=== PATIENT | female | born 1965 | race Caucasian/White ===

== ENCOUNTER 2017-11-07 11:33 | Observation (INO) ==
[2017-11-07] MEDS ORDERED: Ketorolac Inj 30 MG/ML (IVP) Vial IV.PUSH ONE (13:10)
--- NOTE | 2017-11-07 13:19 | ED ---
HPI General Chief complaint: Back Pain/Injury Stated complaint: back pain/ evac Time Seen by Provider: 11/07/17 13:00 Source: patient and RN notes reviewed Mode of arrival: ambulatory Limitations: no limitations History of Present Illness HPI narrative: 51-year-old female presents to the emergency department for multiple complaints. The patient states that yesterday, she was walking into [employer] and her pants are too big. She states this started to fall down so she went to grab him when she fell, injuring her lower back and right lower leg. Patient also complains of chronic shortness of breath. She states that she was at [facility] and they kept all of her medications including her inhaler. She reports that she has COPD. Patient denies being on anticoagulants. No head injury. Patient also states that she has trouble hearing from her left ear which appears to be chronic. She is also asking for food and to see case management as she needs to get back to [place], but she no longer has any money. The pain in her lower back and right lower leg is 10/10. She does have an abrasion to the right lower leg. She states her tetanus immunization is up-to-date. Moderate severity. Patient also reports chest pain , she states she had a recent cardic cath, states they told her "I might need a stent". She states this was in [facility] at [facility]. Patient reports having chest pressure that started this morning, 10/10, without radiation. Onset (ago): day(s) Location: back and lower extremity Radiation: non-radiation Severity: moderate Severity scale (1-10): 10 Quality: aching Pain Consistency: constant Relieving factors: none Exacerbating factors: movement Associated symptoms: denies other symptoms Treatments prior to arrival: none Related Data Home Medications Medication Instructions Recorded Confirmed Unable to Obtain Home Meds 11/07/17 11/07/17 Allergies Allergy/AdvReac Type Severity Reaction Status Date / Time No Known Allergies Allergy Unverified 11/07/17 13:10 Review of Systems ROS Unobtainable All other systems reviewed negative except as stated in HPI [facility] Social History Social History Substance History: No History of Abuse Second Hand Smoke Exposure: Yes Smoking Status: Current every day smoker Tobacco Type: Cigarettes How Often Do You Have a Drink Containing Alcohol: 2 to 3 times a week Recent Travel in [facility] within the Last 8 Weeks: No Recent Out of Country Travel within the Last 8 Weeks: No Exam Narrative Exam Narrative: GENERAL: Well-nourished, well-developed female patient, afebrile SKIN: Focused skin assessment warm/dry. Patient has an abrasion to the right lower leg HEAD: Normocephalic. Atraumatic ENT: Mucosa pink and moist. No erythema or exudates. No uvular edema. No uvular , palatal, or tonsillar deviation. Airway patent. Nasal turbinates appear normal without nasal blood, purulent drainage or septal hematoma. Bilateral tympanic membranes clear without erythema or perforation. EYES: No scleral icterus. No injection or drainage. NECK: Supple, trachea midline. No JVD or lymphadenopathy. CARDIOVASCULAR: Regular rate and rhythm without murmurs, gallops, or rubs. RESPIRATORY: Breath sounds equal bilaterally. No accessory muscle use. Lung sounds are clear to auscultation GASTROINTESTINAL: Abdomen soft, non-tender, nondistended. MUSCULOSKELETAL: No cyanosis, or edema. BACK: Nontender without obvious deformity. No CVA tenderness. Course Initial Documented Vital Signs Temperature 98.3 F 11/07/17 11:35 Pulse Rate 97 H 11/07/17 11:35 Respiratory Rate 20 11/07/17 11:35 Blood Pressure 143/73 H 11/07/17 11:35 Pulse Oximetry 93 L 11/07/17 11:35 Last Documented Vital Signs Temperature 98.3 F 11/07/17 11:35 Pulse Rate 97 H 11/07/17 11:35 Respiratory Rate 20 11/07/17 11:35 Blood Pressure 143/73 H 11/07/17 11:35 Pulse Oximetry 93 L 11/07/17 11:35 Medical Decision Making MARSHAL Attestation MARSHAL supervised visit: Yes Attestation: I, Dr. Jernigan, have reviewed the advance practice practitioner's documentation and am in agreement, met with the patient face to face, made the diagnosis, and the medical decision making was done by me. *My assessment and Findings: Patient seen and examined by me in addition to Aniya Sanon, this a 51-year-old female presents to the emergency department chest pain radiating her back, she states she bent over last night to product picker her drawers when I fell off of her at a local [employer] and she fell forward leading to knee pain back pain etc. She was told at [facility] in [place] that her cath showed she had multiple blocked blood vessels and had recommended surgery for her. She is unclear as to the details. She does have a history of psychiatric illness and since moving from [place] has not been on her medications. Initial workup including chest x-ray multiple plain film x-rays troponin EKG is negative. We are attempting to get outside records for this patient however she does express wishes to see cardiology and continues to have chest pain. For that reason I think is reasonable to admit her to her chest pain center for the time being, once she is cleared she could consider outpatient psychiatric follow-up. She certainly does not meet [place] act criteria at this time. After chest pain rule out she would be stable for discharge. [facility] Narrative Medical decision making narrative: 51-year-old female presents to the emergency department for evaluation of back pain and leg pain after she tripped and fell yesterday [employer]s. However, she also complains of worsening shortness of breath since she does not have [facility]. She complains of COPD. She also complains of chest pain. She is also asking for food and to see case management. She does appear well on exam. EKG, CBC, BMP, magnesium, CK, troponin, PTT, PT/INR, chest x-ray, x-ray lumbar spine, x-ray of the right tibia/fibular ordered and pending. Patient is given DuoNeb 1 and aspirin 162 mg p.o. Patient was initially seen in triage. She is moved to medical bed for further evaluation and disposition per Medical Records Medical records reviewed: Yes I reviewed the patient's medical records. Lab Data Result diagrams: 11/07/17 13:30 11/07/17 13:30 Lab Results 11/07/17 11/07/17 11/07/17 Range/Units 13:30 13:30 13:30 WBC 13.3 H (4.0-11.0) th/mm3 RBC 4.85 (4.00-5.30) mil/mm3 Hgb 15.0 (11.6-15.3) gm/dL Hct 44.9 (35.0-46.0) % MCV 92.6 (80.0-100.0) fL MCH 30.9 (27.0-34.0) pg MCHC 33.4 (32.0-36.0) % RDW 15.5 (11.6-17.2) % Plt Count 327 (150-450) th/mm3 MPV 9.5 (7.0-11.0) fL Neut % (Auto) 72.1 H (16.0-70.0) % Lymph % (Auto) 20.4 (9.0-44.0) % [place] % (Auto) 6.0 (0.0-8.0) % Eos % (Auto) 0.6 (0.0-4.0) % Baso % (Auto) 0.9 (0.0-2.0) % Neut # (Auto) 9.6 H (1.8-7.7) th/mm3 Lymph # (Auto) 2.7 (1.0-4.8) th/mm3 [place] # (Auto) 0.8 (0.0-0.9) th/mm3 Eos # (Auto) 0.1 (0.0-0.4) th/mm3 Baso # (Auto) 0.1 (0.0-0.2) th/mm3 WBC Differential . Differential Comment Auto diff final PT 9.5 L (9.8-11.6) sec INR 0.9 Ratio APTT 25.4 (24.3-30.1) sec Total Creatine Kinase 54 (26-192) U/L Troponin I Less than 0.02 L (0.02-0.05) ng/mL Imaging Data Radiologist's impression: ITS Impressions Chest X-Ray 11/07/17 13:10 CONCLUSION: No acute intrathoracic disease. Lumbar Spine X-Ray 11/07/17 13:10 CONCLUSION: Mild degenerative changes throughout the lumbar spine. Tibia/Fibula X-Ray 11/07/17 13:10 CONCLUSION: Nonspecific edema in the soft tissues. The bony structures are grossly intact. Discharge Plan Discharge Disposition Patient Disposition: 30 Still Patient Physicians Team ED Provider: Marcus Jernigan ED Midlevel Provider: Aniya Steen Primary Care Provider: Primary Care JefiLilli Rxs /Orders / Referrals /Forms Prescriptions: No Action Unable to Obtain Home Meds RF: 0 Status ED Status: With Doctor
[2017-11-07 14:13] LABS: Baso # (Auto) 0.1 th/mm3 (0.0-0.2); Baso % (Auto) 0.9 % (0.0-2.0); Eos # (Auto) 0.1 th/mm3 (0.0-0.4); Eos % (Auto) 0.6 % (0.0-4.0); Hematocrit 44.9 % (35.0-46.0); Lymph # (Auto) 2.7 th/mm3 (1.0-4.8); Lymph % (Auto) 20.4 % (9.0-44.0); Mean Corpuscular HGB Conc 33.4 % (32.0-36.0); Mean Corpuscular Hemoglobin 30.9 pg (27.0-34.0); Mean Corpuscular Volume 92.6 fL (80.0-100.0); Mean Platelet Volume 9.5 fL (7.0-11.0); Mono # (Auto) 0.8 th/mm3 (0.0-0.9); Neut # (Auto) 9.6 th/mm3 (1.8-7.7); Neut % (Auto) 72.1 % (16.0-70.0); Platelet Count 327 th/mm3 (150-450); Red Blood Count 4.85 mil/mm3 (4.00-5.30); Red Cell Distribution Width 15.5 % (11.6-17.2); White Blood Count 13.3 th/mm3 (4.0-11.0)
--- NOTE | 2017-11-07 14:19 | XR ---
EXAM DATE: 11/07/2017 2:14 PM EDT AGE/SEX: 51 years / Female INDICATIONS: Chest pain. CLINICAL DATA: This is the patient's initial encounter. Patient reports that signs and symptoms have been present for 1 day and indicates a pain score of 5/10. MEDICAL/SURGICAL HISTORY: . Heart cath recently, patient cannot remember exactly, but within tw o months. Smoker, Asthma, COPD, Shortness of breath. Schizophrenia, not on medication for some time. None. COMPARISON: No prior exams available for comparison. FINDINGS: A single AP view of the chest demonstrates the lungs to be symmetrically aerated without evidence of mass, infiltrate or effusion. The cardiomediastinal contours are unremarkable. Osseous structures a re intact. CONCLUSION: No acute intrathoracic disease. Electronically signed by: Gary Mcgill MD 11/07/2017 2:18 PM EDT
[2017-11-07 14:21] LABS: Activated Partial Thrombo Time 25.4 sec (24.3-30.1); INR 0.9 Ratio; Prothrombin Time 9.5 sec (9.8-11.6)
--- NOTE | 2017-11-07 14:26 | XR ---
EXAM DATE: 11/07/2017 2:22 PM EDT AGE/SEX: 51 years / Female INDICATIONS: Pain. CLINICAL DATA: This is the patient's initial encounter. Patient reports that signs and symptoms have been present for 1 day and indicates a pain score of 5/10. MEDICAL/SURGICAL HISTORY: . Heart cath recently, patient cannot remember exactly, but within tw o months. Smoker, Asthma, COPD, Shortness of breath. Schizophrenia, not on medication for some time. Fell at [facility]. . COMPARISON: No prior exams available for comparison. FINDINGS: The vertebral bodies are in normal alignment without evidence of compression deformity. There are mil d degenerative changes throughout the lumbar spine. There is good alignment of the SI joints and pubi c symphysis. Bone density is normal for age. Soft tissues are grossly intact. There are atherosclero tic changes in the aorta. CONCLUSION: Mild degenerative changes throughout the lumbar spine. Electronically signed by: Gary Mcgill MD 11/07/2017 2:25 PM EDT
--- NOTE | 2017-11-07 14:27 | XR ---
EXAM DATE: 11/07/2017 2:19 PM EDT AGE/SEX: 51 years / Female INDICATIONS: Leg pain. CLINICAL DATA: This is the patient's initial encounter. Patient reports that signs and symptoms have been present for 1 day and indicates a pain score of 5/10. MEDICAL/SURGICAL HISTORY: . Heart cath recently, patient cannot remember exactly, but within tw o months. Smoker, Asthma, COPD, Shortness of breath. Schizophrenia, not on medication for some time. Fell at [place]. None. COMPARISON: No prior exams available for comparison. FINDINGS: Bony structures are intact and in normal alignment. Osseous density is normal. . There is some nonspe cific edema in the soft tissues. No radiopaque foreign bodies seen. CONCLUSION: Nonspecific edema in the soft tissues. The bony structures are grossly intact. Electronically signed by: Gary Mcgill MD 11/07/2017 2:26 PM EDT
[2017-11-07 14:45] LABS: Creatine Kinase 54 U/L (26-192)
[2017-11-07 16:09] LABS: Calcium 8.5 mg/dL (8.5-10.1); Glomerular Filtration Rate 88 mL/min (>89); Glucose,Random 97 mg/dL (74-106); Magnesium 1.9 mg/dL (1.5-2.5)
[2017-11-07 16:10] LABS: Anion Gap 9 meq/L (5-15); Blood Urea Nitrogen 7 mg/dL (7-18); Carbon Dioxide 27.3 meq/L (21.0-32.0); Chloride 100 meq/L (98-107); Sodium 136 meq/L (136-145)
[2017-11-07] MEDS ORDERED: Acetaminophen 325 MG Tablet PO PRN ×2 (17:38)
[2017-11-07] MEDS ORDERED: Bisacodyl 10 MG Supp RECTAL PRN (17:38)
[2017-11-07] MEDS ORDERED: Naloxone Inj 0.4 MG/ML Vial IV.PUSH PRN (17:38)
--- NOTE | 2017-11-07 17:55 | ECG ---
Date Performed: 11/07/2017 Time Performed: 14:27:23 PTAGE: 51 years EKG: Sinus rhythm NORMAL ECG NO PREVIOUS TRACING DOCTOR: Mumtaz Sanders Interpretating Date/Time 11/07/2017 17:53:44
--- NOTE | 2017-11-07 18:03 | P.HPIM ---
History of Present Illness Primary Care Physician: No Primary Care Physician Chief Complaint: Chest pain History of Present Illness: 51-year-old white female with a history of schizophrenia, COPD, questionable coronary artery disease presents to the emergency room with complaints of substernal chest pains in which she rates as a 10 out of 10 in pain intensity that started 2:00 this morning with no radiation. She states that she was recently hospitalized and [facility] in [facility] on October 30 and was released 5 days later. She states that she usually gets her disability check of the first of the month and use the money to come to [place] to enjoy the sun he beach and stayed at a temporary motel. She states that she was recently placed in [facility] after falling asleep in [facility]. She has felt cloudy since she has stopped all her home medication think including medication she takes for her schizophrenia. She does not remember the name of the medications she was on. She states that she was discharged on aspirin at [facility] and had underwent cardiac catheterization. She does not recall what the physicians told her or if she had a stent placed. She states that she was taking medication for schizophrenia, her chronic low back pain, anxiety, and an inhaler, and recent antibiotics for either sinusitis or a cough. She states that she needs to see somebody to help her get back to [place]. She states that she is not getting along with her sister and she will not let her come back to live with her. Currently, she is homeless and is requesting help. Review of Systems Constitutional: Reports fatigue, Reports lack of energy, Denies body ache(s), Denies chills, Denies headache(s) Eyes: Denies blurry vision, Denies double vision Ears, Nose, Mouth, and Throat: Reports abnormal hearing, Reports nasal congestion, Denies nasal discharge, Denies nasal obstruction Cardiovascular: Reports chest pain, Reports leg swelling, Denies fast heart rate , Denies shortness of breath, Denies shortness of breath with activity Respiratory: Denies change in phlegm color, Denies chest congestion, Denies cough Gastrointestinal: Denies abdominal pain, Denies bright, red blood in stools, Denies change in bowel habits Musculoskeletal: Reports back pain, Denies abnormal walking, Denies muscle cramps Skin/Breast: Reports change in skin color, Reports changing lesions, Reports wounds, Denies yellowing of the skin Comments: Right lower leg from falling [employer]. Neurologic: Reports abnormal hearing, Denies abnormal speech, Denies confusion, Denies dizziness Psychiatric: Reports anxiety, Reports confusion, Reports difficulty concentrating, Reports irritability, Reports mood swings, Denies abnormal sleep pattern, Denies depression, Denies panic attacks Endocrine: Denies cold intolerance, Denies excessive sweating Hematologic/Lymphatic: Denies easy bleeding Allergic/Immunologic: Denies GI upset with certain foods PMFSH - History History Provided By: Patient - Medical / Surgical Hx Neg / Unobtainable Surgical History: No Previous Surgery - Medical History Medical History: Medical History (Last Updated 11/07/17 @ 17:56 by Yun Spivey MD) Anxiety Back pain COPD (chronic obstructive pulmonary disease) GERD (gastroesophageal reflux disease) Schizophrenia - Family History Family History: Family History (Last Updated 11/07/17 @ 17:57 by Yun Spivey MD) Mother COPD (chronic obstructive pulmonary disease) - Tobacco History Second Hand Smoke Exposure: Yes Tobacco Use In Past 30 Days: Yes Smoking Status: Current every day smoker Tobacco Type: Cigarettes - Alcohol History How Often Do You Have a Drink Containing Alcohol: 2 to 3 times a week - Substance Use History Substance History: No History of Abuse - Travel History Recent Travel in the [place] Within the Last 8 Weeks: No Recent Travel Out of the Country Within the Last 8 Weeks: No - Immunization History Tetanus Immunization: <5 Years Hx Influenza Vaccine This Season: No Medications and Allergies Allergies Allergy/AdvReac Type Severity Reaction Status Date / Time No Known Allergies Allergy Unverified 11/07/17 13:10 Exam Vital signs: Vital Signs 11/07/17 11:35 11/07/17 17:44 Temperature 98.3 F Pulse Rate 97 H 87 Respiratory Rate 20 18 Blood Pressure 143/73 H 114/61 Pulse Oximetry 93 L 98 Intake & Output 11/06/17 11/07/17 11/07/17 18:59 06:59 18:59 Weight 117.934 kg Narrative: GENERAL: Obese well-nourished well-developed disheveled malodorous female in no acute distress SKIN: Warm and dry. Healed abrasions on the right anterior tibial area HEAD: Atraumatic. Normocephalic. EYES: Pupils equal and round. No scleral icterus. No injection or drainage. ENT: No nasal bleeding or discharge. Mucous membranes pink and moist. NECK: Trachea midline. No JVD. Chest wall: Reproducible on palpation of the chest wall CARDIOVASCULAR: Regular rate and rhythm. RESPIRATORY: No accessory muscle use. Clear to auscultation. Breath sounds equal bilaterally. GASTROINTESTINAL: Abdomen soft, non-tender, nondistended. Hepatic and splenic margins not palpable. Normoactive bowel sounds MUSCULOSKELETAL: Extremities without clubbing, cyanosis, 1+ edema. NEUROLOGICAL: Awake and alert to person place time and situation. No obvious cranial nerve deficits. Motor grossly within normal limits. Five out of 5 muscle strength in the arms and legs. Normal speech. PSYCHIATRIC: Appropriate mood and affect; insight and judgment normal. Results - Labs CBC & Chem 7: 11/07/17 13:30 11/07/17 13:30 Labs: Short CBC 11/07/17 Range/Units 13:30 WBC 13.3 H (4.0-11.0) th/mm3 Hgb 15.0 (11.6-15.3) gm/dL Hct 44.9 (35.0-46.0) % Plt Count 327 (150-450) th/mm3 BMP 11/07/17 13:30 Sodium 136 Potassium 5.0 Chloride 100 Carbon Dioxide 27.3 BUN 7 Creatinine 0.70 Calcium 8.5 Cardiac Enzymes 11/07/17 Range/Units 13:30 Total Creatine Kinase 54 (26-192) U/L Troponin I Less than 0.02 L (0.02-0.05) ng/mL - Imaging Impressions Chest X-Ray 11/07/17 13:10 CONCLUSION: No acute intrathoracic disease. Lumbar Spine X-Ray 11/07/17 13:10 CONCLUSION: Mild degenerative changes throughout the lumbar spine. Tibia/Fibula X-Ray 11/07/17 13:10 CONCLUSION: Nonspecific edema in the soft tissues. The bony structures are grossly intact. Caprini VTE Risk Assessment Caprini VTE Risk Assessment: Moderate/High Risk (score >= 2) Caprini Risk Assessment Model: Point Value = 1 Point Value = 2 Point Value = 3 Point Value = 5 Age 41-60 Minor surgery BMI > 25 kg/m2 Swollen legs Varicose veins or History of unexplained or recurrent spontaneous Oral contraceptives or hormone replacement Sepsis (< 1 month) Serious lung disease, including pneumonia (< 1 month) Abnormal pulmonary function Acute myocardial infarction Congestive heart failure (< 1 month) History of inflammatory bowel disease Medical patient at bed rest Age 61-74 Arthroscopic surgery Major open surgery (> 45 min) Laparoscopic surgery (> 45 min) Malignancy Confined to bed (> 72 hours) Immobilizing plaster cast Central venous access Age >= 75 History of VTE Family history of VTE Factor V Leiden Prothrombin [id number] Lupus anticoagulant Anticardiolipin antibodies Elevated serum homocysteine Heparin-induced thrombocytopenia Other congenital or acquired thrombophilia Stroke (< 1 month) Elective arthroplasty Hip, pelvis, or leg fracture Acute spinal cord injury (< 1 month) Prophylaxis Regimen: Total Risk Factor Score Risk Level Prophylaxis Regimen 0-1 Low Early ambulation 2 Moderate Order ONE of the following: *Sequential Compression Device (SCD) *Heparin 5000 units SQ BID 3-4 Higher Order ONE of the following medications: *Heparin 5000 units SQ TID *Enoxaparin/Lovenox 40 mg SQ daily (WT < 150 kg, CrCl > 30 mL/min) *Enoxaparin/Lovenox 30 mg SQ daily (WT < 150 kg, CrCl > 10-29 mL/min) *Enoxaparin/Lovenox 30 mg SQ BID (WT < 150 kg, CrCl > 30 mL/min) AND/OR *Sequential Compression Device (SCD) 5 or more Highest Order ONE of the following medications: *Heparin 5000 units SQ TID (Preferred with Epidurals) *Enoxaparin/Lovenox 40 mg SQ daily (WT < 150 kg, CrCl > 30 mL/min) *Enoxaparin/Lovenox 30 mg SQ daily (WT < 150 kg, CrCl > 10-29 mL/min) *Enoxaparin/Lovenox 30 mg SQ BID (WT < 150 kg, CrCl > 30 mL/min) AND *Sequential Compression Device (SCD) Assessment and Plan - Plan 1. Chest pain, patient with atypical history however stated cardiac catheterization done in [facility] and stated that she "may need stents placed in the future". Continue with aspirin, serial cardiac enzymes will be done with EKG. will obtain further records for review. 2. History of schizophrenia with noncompliance and nonadherence to medications. At this time will obtain psychiatric consultation for recommendations for medications. Reviewing external data shows patient had a recent Lexapro filled. 3. Poor social history, case management consultation to assist with disposition.
[2017-11-07] MEDS ORDERED: Enoxaparin Inj 40 MG/0.4 ML Syringe SQ SCH (20:00)
[2017-11-08 03:43] LABS: Troponin I 0.02 ng/mL (0.02-0.05)
[2017-11-08 07:21] LABS: Creatine Kinase 37 U/L (26-192)
--- NOTE | 2017-11-08 10:28 | P.PNIM ---
Subjective Interval history: Patient reports she is feeling better in terms of chest pain. She is tender to palpation over her chest. She has been coughing prior to hospitalization. She has been seen by psychiatry who [facility]ailon acted her. Records from [facility] reviewed. Patient presented about a month ago for chest pain, underwent heart catheterization which revealed nonobstructive disease. Physical Exam Vital signs: Vital Signs 11/07/17 11:35 11/07/17 17:44 11/07/17 19:43 Temperature 98.3 F Pulse Rate 97 H 87 91 H Respiratory Rate 20 18 22 Blood Pressure 143/73 H 114/61 136/61 Pulse Oximetry 93 L 98 11/07/17 20:00 11/08/17 00:00 11/08/17 02:11 Temperature 98.5 F 97.8 F Pulse Rate 85 93 H Respiratory Rate 20 18 18 Blood Pressure 150/68 H 141/61 H Pulse Oximetry 92 L 93 L 11/08/17 04:00 11/08/17 04:49 11/08/17 05:14 Temperature 98.4 F Pulse Rate 88 Respiratory Rate 18 Blood Pressure 135/60 Pulse Oximetry 90 L 95 95 11/08/17 08:00 Temperature 98.3 F Pulse Rate 82 Respiratory Rate Blood Pressure 135/62 Pulse Oximetry 91 L Intake & Output 11/07/17 11/08/17 11/08/17 18:59 06:59 18:59 Weight 117.934 kg 117.934 kg Other: Weight On Admission 117.934 kg Narrative: GENERAL: morbidly obese female in no apparent distress. CARDIOVASCULAR: Normal rate and regular rhythm without murmurs, gallops, or rubs. RESPIRATORY: Good respiratory efforts. Breath sounds equal and clear to auscultation bilaterally. GASTROINTESTINAL: Abdomen soft, non-tender, non-distended. Normal active bowel sounds MUSCULOSKELETAL: Tenderness to palpation over the sternal joint areas. Extremities without cyanosis, or edema. NEURO: Alert & Oriented x4 to person, place, time, situation. Moves all ext x4 PSYCH: Anxious Results - Labs CBC & Chem 7: 11/07/17 13:30 11/07/17 13:30 Laboratory Results - last 24 hr 11/07/17 11/07/17 11/07/17 13:30 13:30 13:30 WBC 13.3 H RBC 4.85 Hgb 15.0 Hct 44.9 MCV 92.6 MCH 30.9 MCHC 33.4 RDW 15.5 Plt Count 327 MPV 9.5 Neut % (Auto) 72.1 H Lymph % (Auto) 20.4 Bureau % (Auto) 6.0 Eos % (Auto) 0.6 Baso % (Auto) 0.9 Neut # (Auto) 9.6 H Lymph # (Auto) 2.7 Bureau # (Auto) 0.8 Eos # (Auto) 0.1 Baso # (Auto) 0.1 WBC Differential . Differential Comment Auto diff final PT 9.5 L INR 0.9 APTT 25.4 Sodium 136 Potassium 5.0 Chloride 100 Carbon Dioxide 27.3 Anion Gap 9 BUN 7 Creatinine 0.70 Estimated GFR 88 L Random Glucose 97 Calcium 8.5 Magnesium 1.9 Total Creatine Kinase 54 Troponin I Less than 0.02 L 11/08/17 11/08/17 02:30 05:49 WBC RBC Hgb Hct MCV MCH MCHC RDW Plt Count MPV Neut % (Auto) Lymph % (Auto) Bureau % (Auto) Eos % (Auto) Baso % (Auto) Neut # (Auto) Lymph # (Auto) Bureau # (Auto) Eos # (Auto) Baso # (Auto) WBC Differential Differential Comment PT INR APTT Sodium Potassium Chloride Carbon Dioxide Anion Gap BUN Creatinine Estimated GFR Random Glucose Calcium Magnesium Total Creatine Kinase 33 37 Troponin I 0.02 Less than 0.02 L - Imaging Impressions Chest X-Ray 11/07/17 13:10 CONCLUSION: No acute intrathoracic disease. Lumbar Spine X-Ray 11/07/17 13:10 CONCLUSION: Mild degenerative changes throughout the lumbar spine. Tibia/Fibula X-Ray 11/07/17 13:10 CONCLUSION: Nonspecific edema in the soft tissues. The bony structures are grossly intact. Assessment and Plan - Assessment (1) Atypical chest pain Code(s): R07.89 - Other chest pain Status: Acute Plan: Records from [facility] reviewed. Patient presented about a month ago for chest pain, underwent heart catheterization which revealed nonobstructive disease. Patient is to continue with daily baby aspirin. Likely costochondritis as she has been coughing from COPD. (2) Schizophrenia Code(s): F20.9 - Schizophrenia, unspecified Status: Acute Plan: Patient has been seen by psychiatry and Bailon acted. She is discharged to psychiatry for further stabilization. (3) COPD (chronic obstructive pulmonary disease) Code(s): J44.9 - Chronic obstructive pulmonary disease, unspecified Status: Chronic Plan: Continue inhalers. Advair and PRN albuterol (4) Tobacco abuse Code(s): Z72.0 - Tobacco use Status: Chronic Plan: Patient was counseled. - Plan Patient is stable for discharge to psychiatry Diet: Heart healthy Activity: Regular as tolerated Meds: Per med rec Follow-up: With PCP
== END 2017-11-08 12:56 ==
LOC: NEPFCDU 11:33 → NEDA 11:33 → NEPD 11:33 → NEPFCDU 20:48
PROVIDERS: ADMIT Family Medicine; ATTEND Family Medicine

== ENCOUNTER 2017-11-08 11:50 | Inpatient (IN) ==
[2017-11-08] MEDS ORDERED: Bisacodyl 10 MG Supp RECTAL PRN (13:12)
[2017-11-08] MEDS ORDERED: Aluminum/Magnesium/Simethacone Susp 30 ML UDC PO PRN (13:12)
[2017-11-08] MEDS ORDERED: LORazepam 1 MG Tablet PO PRN (13:12)
[2017-11-08] MEDS ORDERED: Haloperidol Inj 5 MG/ML Ampul IV.PUSH PRN (13:12)
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
[2017-11-08] MEDS: Senna/Docusate Sodium 8.6/50 MG Tablet PO SCH (21:10)
[2017-11-09] MEDS ORDERED: Ketorolac 10 MG Tablet PO ONE (07:00)
[2017-11-09] MEDS: Senna/Docusate Sodium 8.6/50 MG Tablet PO SCH ×2 (09:22→21:33)
[2017-11-09] MEDS ORDERED: RESP: Albuterol Concentrated 2.5 MG/0.5 ML Neb NEB PRN (10:03)
--- NOTE | 2017-11-09 10:11 | P.CON ---
History of Present Illness Service: Hospitalist service Consult date: 11/09/17 Requesting Physician: Rick Mcdermott Reason for Consult: Assist with medical management of COPD and low back pain Primary Care Provider: UNKNOWN History of Present Illness: This is a 51-year-old female with past medical history significant for schizophrenia, COPD and coronary artery disease who recently underwent cardiac workup including a cardiac catheterization which revealed nonobstructive disease at [facility] in [facility] 10/30 and was admitted initially to [place] with complaints of substernal chest pain who ruled out of acute coronary syndrome. Additionally, patient had complaints of right leg pain and low back pain that occurred as a result of a recent fall. Imaging failed to show any acute fracture. Patient was also seen in consultation by psychiatry and was [facility]ailon acted. Patient has since been admitted to inpatient psychiatry and hospitalist services have been consulted to assist with medical management. Patient seen and examined. She has multiple complaints including chest pain, upper back pain, abdominal pain and right leg pain. She denies a history of GERD but does admit that she began developing substernal chest pain after taking her morning medications. However, GERD is listed in her past medical history per review of the medical record. She denies any fever or chills. She complains of chronic shortness of breath and states that she is supposed to be on oxygen. She denies any nausea or vomiting. She denies any dysuria. She reports a normal BM this morning. She reports pain and swelling right lower leg. She endorses mid thoracic spine pain extending all the way across the upper back. Patient admits to tobacco use states she smokes when she cannot receive pain medications and that this was advised by her physician. She endorses she will continue to smoke if she does not get pain medication. She is currently homeless. Review of Systems All other systems reviewed negative except as stated in HPI PMFSH - History History Provided By: Patient, Medical Record - Medical History Medical History: Medical History (Last Updated 11/07/17 @ 17:56 by Yun Spivey MD) Anxiety Back pain COPD (chronic obstructive pulmonary disease) GERD (gastroesophageal reflux disease) Schizophrenia - Surgical History Surgical History: Surgical History (Last Updated 11/09/17 @ 09:30 by Isabel Ahmadi) No history of previous surgery - Family History Family History: Family History (Last Updated 07/05/18 @ 17:57 by Yun Spivey MD) Mother COPD (chronic obstructive pulmonary disease) - Tobacco History Second Hand Smoke Exposure: No Tobacco Use In Past 30 Days: Yes Smoking Status: Current every day smoker Tobacco Type: Cigarettes - Alcohol History How Often Do You Have a Drink Containing Alcohol: 4 or more times a week - Substance Use History Substance History: No History of Abuse Medications and Allergies Active Medications: Active Medications Al Hydrox/Mg Hydrox/Simethicone (Mag-Al Plus Susp Liq) 30 ml PO Q6H PRN PRN Reason: DYSPEPSIA Al Hydroxide/Mg Hydroxide (Milk Of Magnesia Liq) 30 ml PO Q12H PRN PRN Reason: Mild Constipation Bisacodyl (Dulcolax Supp) 10 mg RECTAL DAILY PRN PRN Reason: SEVERE CONSITIPATION Flumazenil (Romazecon Inj) 0.2 mg IV.PUSH Q1M PRN PRN Reason: OVERSEDATION Haloperidol Lactate (Haldol Inj) 1 mg IV.PUSH Q15M PRN PRN Reason: for severe agitation Lactulose (Lactulose Liq) 30 ml PO DAILY PRN PRN Reason: SEVERE CONSITIPATION Lorazepam (Ativan) 1 mg PO Q4H PRN PRN Reason: for CIWA 8-10 Lorazepam (Ativan) 2 mg PO Q2H PRN PRN Reason: for CIWA 11-14 Lorazepam (Ativan Inj) 2 mg IV.PUSH Q2H PRN PRN Reason: for CIWA 11-14 Lorazepam (Ativan Inj) 2 mg IV.PUSH Q1H PRN PRN Reason: for CIWA 15-20 Lorazepam (Ativan Inj) 2 mg IV.PUSH Q15M PRN PRN Reason: for CIWA > 20 Lorazepam (Ativan Inj) 1 mg IV.PUSH Q4H PRN PRN Reason: for CIWA 8-10 Senna/Docusate Sodium (Yen-Colace) 1 tab PO BID [facility] Last Admin: 11/08/17 21:10 Dose: 1 tab Sennosides (Senokot) 17.2 mg PO Q12H PRN PRN Reason: Moderate Constipation Ziprasidone (Geodon) 20 mg PO BID [facility] Last Admin: 11/08/17 20:27 Dose: Not Given Allergies Allergy/AdvReac Type Severity Reaction Status Date / Time No Known Allergies Allergy Unverified 11/07/17 13:10 Home Medications Medication Instructions Recorded Confirmed Type fluticasone-salmeterol [Advair 1 inh INHALATION Q12H 11/08/17 11/08/17 History Diskus] hydrocodone-acetaminophen 1 tab PO Q4-6H PRN 11/08/17 11/08/17 History Physical Exam Vital signs: Vital Signs 11/08/17 17:02 11/08/17 17:52 11/09/17 01:13 Temperature 97.6 F 97.6 F Pulse Rate 86 88 Respiratory Rate 20 20 16 Blood Pressure 176/79 H 172/78 H Pulse Oximetry 94 L 93 L 11/09/17 06:02 11/09/17 06:32 Temperature 98.1 F Pulse Rate 86 90 Respiratory Rate 17 16 Blood Pressure 160/72 H 128/71 Pulse Oximetry 89 L Intake & Output 11/08/17 11/09/17 11/09/17 18:59 06:59 18:59 Weight 124.3 kg Narrative: GENERAL: This is an obese well-developed well-nourished female, no acute distress. Lying in bed. Awake and alert. SKIN: Warm and dry. No generalized rash. HEAD: Atraumatic. Normocephalic. EYES: Pupils equal and round. No scleral icterus. No injection or drainage. ENT: No nasal bleeding or discharge. Mucous membranes pink and moist. NECK: Trachea midline. No JVD. CARDIOVASCULAR: Regular rate and rhythm. RESPIRATORY: No accessory muscle use. Clear to auscultation. Breath sounds equal bilaterally. GASTROINTESTINAL: Protuberant abdomen soft , nondistended. + Diffuse tenderness to palpation. Difficult to assess organomegaly secondary to patient' s body habitus. MUSCULOSKELETAL: Extremities without clubbing or cyanosis. Trace pitting edema bilateral lower extremities. +Right lower extremity with moderate sized eschar with surrounding erythema and edema, tender to palpation. + Extensive ecchymosis surrounding the right ankle with tenderness to palpation and decreased ROM. + Spine ROM not tested. Able to palpate spinous processes and thoracic and lumbar paraspinous muscles without any subjective complaints of pain. NEUROLOGICAL: Awake and alert. No obvious cranial nerve deficits. Motor grossly within normal limits. No focal neurologic findings appreciated. Normal speech. PSYCHIATRIC: Calm and cooperative. Assessment and Plan - Plan This is a 51-year-old homeless female with past medical history significant for nonobstructive coronary artery disease status post recent catheterization, COPD with ongoing tobaccoism, anxiety, GERD and schizophrenia who sustained an injury to her back and right lower leg status post recent fall he was admitted to inpatient psychiatry under Bailon act. Hospitalist services have been consulted to assist with ongoing medical management. Schizophrenia Under Bailon act -Management per psychiatric team COPD Ongoing tobaccoism Suspected obesity hypoventilation syndrome Suspected CAITY Hypoxia, O2 sats 87% on RA CXR 11/07 shows no acute cardiopulmonary disease -Repeat CXR -Scheduled duo nebs and albuterol as needed -Resume on home bronchodilator therapy -Supplemental oxygen to maintain O2 saturations greater than 92% -discussed with RUBIN Godinez patient to be moved up to special care hospital -Discussed smoking cessation, patient is adamant that she will continue to smoke, she receives pain medication -Recommend patient implement a regular exercise program and dietary modifications Nonobstructive CAD s/p recent cardiac catheterization in October in [place] Patient has complaints of chest pain, suspect either costochondritis or GI etiology, also concern for drug-seeking behavior Previously ruled out ACS this admission -We will obtain a troponin level and EKG -Begin PPI -Monitor for improvement -Continue aspirin 81 mg daily Status post fall with injury to right lower leg and back X-rays lumbar spine shows no acute fracture, mild degenerative changes X-ray of the right tib/fib shows nonspecific edema, no acute fracture Patient complaining of T spine pain, right lower leg and ankle pain RLE abrasion and cellulitis -will obtain xray thoracic spine and right ankle -Obtain ultrasound of right lower extremity rule out underlying abscess/ fluid collection -begin abx treatment with Keflex and Bactrim, monitor for improvement -PT eval/tx Abdominal pain no associated N/V Patient reports normal BM this a.m., denies any dysuria -Obtain UA -Obtain CBC, CMP and lipase level -monitor Leukocytosis white count 13.3 Patient is afebrile, vital signs are stable -Repeat CBC pending DVT prophylaxis -Patient is ambulatory Thank you very kindly for this consultation. We will continue to follow patient along with you. Discussed Condition With: patient, nursing staff
[2017-11-09 10:21] LABS: Baso # (Auto) 0.1 th/mm3 (0.0-0.2); Baso % (Auto) 0.5 % (0.0-2.0); Eos # (Auto) 0.1 th/mm3 (0.0-0.4); Eos % (Auto) 1.5 % (0.0-4.0); Hematocrit 42.2 % (35.0-46.0); Hemoglobin 13.9 gm/dL (11.6-15.3); Lymph # (Auto) 2.2 th/mm3 (1.0-4.8); Lymph % (Auto) 22.1 % (9.0-44.0); Mean Corpuscular Hemoglobin 30.5 pg (27.0-34.0); Mean Corpuscular Volume 92.2 fL (80.0-100.0); Mean Platelet Volume 9.7 fL (7.0-11.0); Mono # (Auto) 0.5 th/mm3 (0.0-0.9); Mono % (Auto) 4.8 % (0.0-8.0); Neut # (Auto) 7.1 th/mm3 (1.8-7.7); Neut % (Auto) 71.1 % (16.0-70.0); Platelet Count 251 th/mm3 (150-450); Red Blood Count 4.57 mil/mm3 (4.00-5.30); Red Cell Distribution Width 15.3 % (11.6-17.2)
[2017-11-09 10:36] LABS: Calcium 8.9 mg/dL (8.5-10.1); Carbon Dioxide 30.6 meq/L (21.0-32.0); Chol/HDL Ratio 4.01 Ratio; HDL Cholesterol 54.3 mg/dL (40.0-60.0); Potassium 3.9 meq/L (3.5-5.1)
[2017-11-09] MEDS: Budesonide-Formoterol 160/4.5 MCG 6 GM Inhaler INH SCH ×2 (11:40→21:00)
[2017-11-09] MEDS: Sulfamethoxazole/Trimethoprim 400/80 MG Tablet PO SCH ×2 (11:41→21:01)
[2017-11-09 12:34] LABS: Albumin 2.9 g/dL (3.4-5.0)
[2017-11-09 12:35] LABS: Total Protein 6.9 g/dL (6.4-8.2)
[2017-11-09 14:10] LABS: Hemoglobin A1c 5.5 % (4.3-6.0)
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
--- NOTE | 2017-11-09 16:17 | XR ---
EXAM DATE: 11/09/2017 3:32 PM EDT AGE/SEX: 51 years / Female INDICATIONS: Dyspnea. CLINICAL DATA: This is the patient's initial encounter. Patient reports that signs and symptoms have been present for 2 days and indicates a pain score of 0/10. MEDICAL/SURGICAL HISTORY: . Heart cath recently, patient cannot remember exactly, but within tw o months. Smoker, Asthma, COPD, Shortness of breath. Schizophrenia, not on medication for some time. Fell at [facility]. . None. COMPARISON: [facility] – [place], CHEST 1V SINGLE AP, 11/07/2017. . FINDINGS: A single AP view of the chest demonstrates the lungs to be symmetrically aerated without evidence of mass, infiltrate or effusion. The cardiomediastinal contours are unremarkable. Osseous structures a re intact. CONCLUSION: No acute findings. Electronically signed by: Vernon aPlma MD 11/09/2017 4:16 PM EDT
--- NOTE | 2017-11-09 16:18 | XR ---
EXAM DATE: 11/09/2017 3:38 PM EDT AGE/SEX: 51 years / Female INDICATIONS: Pain. CLINICAL DATA: This is the patient's initial encounter. Patient reports that signs and symptoms have been present for 2 days and indicates a pain score of 8/10. MEDICAL/SURGICAL HISTORY: . Heart cath recently, patient cannot remember exactly, but within tw o months. Smoker, Asthma, COPD, Shortness of breath. Schizophrenia, not on medication for some time. Fell at [facility]. . None. COMPARISON: No prior exams available for comparison. FINDINGS: The vertebral bodies are in normal alignment without evidence of compression deformity. Bone density is normal for age. Soft tissues are grossly intact. CONCLUSION: Mild degenerative change. No acute findings. Electronically signed by: Vernon Palma MD 11/09/2017 4:17 PM EDT
--- NOTE | 2017-11-09 16:21 | XR ---
EXAM DATE: 11/09/2017 3:33 PM EDT AGE/SEX: 51 years / Female INDICATIONS: Pain. Fall. CLINICAL DATA: This is the patient's initial encounter. Patient reports that signs and symptoms have been present for 2 days and indicates a pain score of 6/10. MEDICAL/SURGICAL HISTORY: . Heart cath recently, patient cannot remember exactly, but within tw o months. Smoker, Asthma, COPD, Shortness of breath. Schizophrenia, not on medication for some time. Fell at [facility]. . None. COMPARISON: [facility] – [place], TIBIA FIBULA RIGHT 2V, 11/07/2017. . FINDINGS: Bony structures are intact and in normal alignment. Joints are intact without dislocation or signifi cant arthropathy. Osseous density is normal. Soft tissues are swollen. No radiopaque foreign nicolas s seen. CONCLUSION: No acute bony abnormality. Electronically signed by: Vernon Palma MD 11/09/2017 4:20 PM EDT
--- NOTE | 2017-11-09 18:18 | ECG ---
Date Performed: 11/09/2017 Time Performed: 15:30:06 PTAGE: 51 years EKG: Sinus rhythm NORMAL ECG PREVIOUS TRACING : 11/07/2017 14.27 No significant change from previous tracing noted. DOCTOR: Renan Quiroz Interpretating Date/Time 11/09/2017 18:17:19
--- NOTE | 2017-11-09 19:43 | US ---
EXAM DATE: 11/09/2017 7:24 PM EDT AGE/SEX: 51 years / Female INDICATIONS: Erythema. Hematoma. CLINICAL DATA: This is the patient's initial encounter. Patient reports that signs and symptoms have been present for 1 day and indicates a pain score of 7/10. MEDICAL/SURGICAL HISTORY: Chronic obstructive pulmonary disease. Gastroesophageal reflux disea se. Schizophrenia. Anxiety. Back pain. None. COMPARISON: No prior exams available for comparison. FINDINGS: Edematous changes noted. No abnormal fluid collections. No discrete masses seen. CONCLUSION: 1. Edematous changes in the soft tissues. Electronically signed by: Vernon Palma MD 11/09/2017 7:41 PM EDT
[2017-11-09] MEDS: Ibuprofen 600 MG Tablet PO PRN (23:01)
--- NOTE | 2017-11-10 09:33 | P.PN ---
Subjective Interval history: Follow up on patient with COPD, CAD, s/p fall with contusion/hematoma RLE. Patient seen and examined. Patient is requesting pain medication for her chronic back pain secondary to OA. States she cannot stand or walk without pain. Reports she takes Percocet as outpatient. She denies any fever or chills. She denies any chest pain or shortness of breath. No N/V or abdominal pain. Physical Exam Vital signs: Vital Signs 11/09/17 10:05 11/09/17 18:16 11/09/17 19:56 Temperature 98.1 F Pulse Rate 94 H 78 Respiratory Rate 18 18 Blood Pressure 118/66 Pulse Oximetry 87 L 92 L 98 11/09/17 23:41 11/10/17 05:26 11/10/17 08:48 Temperature 97.3 F L Pulse Rate 80 80 Respiratory Rate 18 17 Blood Pressure 135/56 L Pulse Oximetry 96 96 Intake & Output 11/09/17 11/10/17 11/10/17 18:59 06:59 18:59 Intake Total 960 / 960 360 / 360 Balance 960 / 960 360 / 360 Intake: Oral 960 / 960 360 / 360 Other: # Voids 1 Narrative: GENERAL: This is an obese well-developed well-nourished female, no acute distress. Awake and alert. Sitting up in bed eating breakfast. SKIN: Warm and dry. No generalized rash. HEAD: Atraumatic. Normocephalic. EYES: Pupils equal and round. No scleral icterus. No injection or drainage. ENT: No nasal bleeding or discharge. Mucous membranes pink and moist. NECK: Trachea midline. CARDIOVASCULAR: Regular rate and rhythm. RESPIRATORY: No accessory muscle use. Clear to auscultation. Breath sounds equal bilaterally. GASTROINTESTINAL: Protuberant abdomen soft , nondistended. MUSCULOSKELETAL: Extremities without clubbing or cyanosis. Trace pitting edema bilateral lower extremities. +Right lower extremity with moderate sized eschar with surrounding erythema and edema, tender to palpation. + Extensive ecchymosis surrounding the right ankle with tenderness to palpation and decreased ROM. + Spine ROM not tested. Able to palpate spinous processes and thoracic and lumbar paraspinous muscles without any subjective complaints of pain. NEUROLOGICAL: Awake and alert. No obvious cranial nerve deficits. Motor grossly within normal limits. No focal neurologic findings appreciated. Normal speech. PSYCHIATRIC: Calm and cooperative. Results - Labs CBC & Chem 7: 11/09/17 08:48 11/09/17 08:48 Laboratory Results - last 24 hr 11/09/17 11/09/17 11/09/17 08:48 08:48 08:48 WBC 10.0 RBC 4.57 Hgb 13.9 Hct 42.2 MCV 92.2 MCH 30.5 MCHC 33.0 RDW 15.3 Plt Count 251 MPV 9.7 Neut % (Auto) 71.1 H Lymph % (Auto) 22.1 [place] % (Auto) 4.8 Eos % (Auto) 1.5 Baso % (Auto) 0.5 Neut # (Auto) 7.1 Lymph # (Auto) 2.2 [place] # (Auto) 0.5 Eos # (Auto) 0.1 Baso # (Auto) 0.1 WBC Differential . Differential Comment Auto diff final Sodium 138 Potassium 3.9 D Chloride 98 Carbon Dioxide 30.6 Anion Gap 9 BUN 10 Creatinine 0.74 Estimated GFR 82 L Random Glucose 143 H Hemoglobin A1c 5.5 Calcium 8.9 Total Bilirubin Direct Bilirubin Indirect Bilirubin AST ALT Alkaline Phosphatase Troponin I Total Protein Albumin Triglycerides 184 H Cholesterol 218 H LDL Cholesterol, Calc 127 H HDL Cholesterol 54.3 Cholesterol/HDL Ratio 4.01 Lipase 11/09/17 11/09/17 08:48 08:48 WBC RBC Hgb Hct MCV MCH MCHC RDW Plt Count MPV Neut % (Auto) Lymph % (Auto) [place] % (Auto) Eos % (Auto) Baso % (Auto) Neut # (Auto) Lymph # (Auto) [place] # (Auto) Eos # (Auto) Baso # (Auto) WBC Differential Differential Comment Sodium Potassium Chloride Carbon Dioxide Anion Gap BUN Creatinine Estimated GFR Random Glucose Hemoglobin A1c Calcium Total Bilirubin 0.3 Direct Bilirubin 0.1 Indirect Bilirubin 0.2 AST 24 ALT 28 Alkaline Phosphatase 179 H Troponin I Less than 0.02 L Total Protein 6.9 Albumin 2.9 L Triglycerides Cholesterol LDL Cholesterol, Calc HDL Cholesterol Cholesterol/HDL Ratio Lipase 130 - Imaging Impressions Ankle X-Ray 11/09/17 00:00 CONCLUSION: No acute bony abnormality. Chest X-Ray 11/09/17 00:00 CONCLUSION: No acute findings. Lower Extremity Ultrasound 11/09/17 00:00 CONCLUSION: 1. Edematous changes in the soft tissues. Thoracic Spine X-Ray 11/09/17 00:00 CONCLUSION: Mild degenerative change. No acute findings. Assessment and Plan - Plan This is a 51-year-old homeless female with past medical history significant for nonobstructive coronary artery disease status post recent catheterization, COPD with ongoing tobaccoism, anxiety, GERD and schizophrenia who sustained an injury to her back and right lower leg status post recent fall he was admitted to inpatient psychiatry under [place]. Hospitalist services have been consulted to assist with ongoing medical management. Schizophrenia Under [place] -Management per psychiatric team COPD Ongoing tobaccoism Suspected obesity hypoventilation syndrome Suspected CAITY Hypoxia, O2 sats 87% on RA, improved to 96% on NC CXR 11/07 shows no acute cardiopulmonary disease Repeat CXR shows no acute findings -Scheduled duo nebs and albuterol as needed -Continue on home bronchodilator therapy -Supplemental oxygen to maintain O2 saturations greater than 92% -discussed with RUBIN Godinez patient to be moved up to [facility] -Discussed smoking cessation, patient is adamant that she will continue to smoke, unless she receives pain medication -Recommend patient implement a regular exercise program and dietary modifications Nonobstructive CAD s/p recent cardiac catheterization in October in [place] Patient has complaints of chest pain, suspect either costochondritis or GI etiology, also concern for drug-seeking behavior Previously ruled out ACS this admission Trop neg, EKG w/no sig changes, tracing reviewed by me -continue PPI -Monitor for improvement -Continue aspirin 81 mg daily Status post fall with injury to right lower leg and back all imaging neg for acute fracture RLE abrasion and cellulitis, US negative for underlying fluid collection -continue abx treatment with Keflex and Bactrim, monitor for improvement -PT eval/tx -tramadol prn pain Abdominal pain no associated N/V, improved Patient tolerating diet UA not done Lipase and LFTs WNL -monitor Leukocytosis, resolved white count 13.3 Patient is afebrile, vital signs are stable -monitor as indicated Dyslipidemia ASCVD risk calculator 39% lifetime risk -Discussed initiation of statin therapy with patient was agreeable. LFTs within normal limits. -Begin Lipitor 20 mg daily, recommend patient follow-up with PCP as outpatient and have LFTs and lipid profile rechecked DVT prophylaxis -Patient is ambulatory Discussed Condition With: patient, Odilia CONKLIN and Dr. Lares
[2017-11-10] MEDS: Senna/Docusate Sodium 8.6/50 MG Tablet PO SCH (10:55)
[2017-11-10] MEDS: Sulfamethoxazole/Trimethoprim 400/80 MG Tablet PO SCH (10:56)
[2017-11-10] MEDS: Budesonide-Formoterol 160/4.5 MCG 6 GM Inhaler INH SCH (10:57)
--- NOTE | 2017-11-10 11:07 | P.PNPSY ---
Subjective Remarks: Patient seen for follow, chart reviewed. Discussion nursing staff reported the patient cooperative with staff, improve sleep last evening. Patient was found lying hospital bed noted B, cooperative. Patient states her mood has been "a little better" but continues report feeling depressed and lessening of suicide ideations. Patient denying any perceptional services today not noted to have any delusional material today. Patient reports having slept better last evening , eating and drinking well and attempting to ambulate more. Review of Systems All other systems reviewed negative except as stated in HPI Mental Status Examination Appearance: Disheveled, Malodorous Consciousness: Alert Orientation: x4 Motor Activity: Normal gait Speech: Unremarkable Language: Adequate Fund of Knowledge: Adequate Attention and Concentration: Adequate Memory: Unremarkable Mood: Sad Affect: Sad, Other (Tearful at times) Thought Process & Associations: Loose associations, Tangential Thought Content: Bizarre thinking, Preoccupations, Obsessions Hallucination Type: Auditory Suicidal Ideation: Yes (Decreasing a denies this morning) Suicidal Plan: No Suicidal Intention: No Homicidal Ideation: No Homicidal Plan: No Homicidal Intention: No Insight: Fair Judgment: Impulsive Assessment and Plan - Assessment (1) Schizophrenia Code(s): F20.9 - Schizophrenia, unspecified Status: Acute - Plan Plan: Patient this time noted with improved mood, although continues report feeling depressed, denying any suicide ideations this morning. We will continue current treatment. We will continue to monitor mood and behavior. Continue to encourage patient to maintain personal hygiene. Hospitalist input appreciated. Discharge planning in progress. Justification for Continued Inpatient Stay: At risk for further decompensation if at lower level of care
[2017-11-10 13:02] LABS: Bacteria,Urine Occasional /hpf; Bilirubin,Urine Negative (Negative); Clarity,Urine Clear (Clear); Color,Urine Straw (Yellw/Straw); Glucose,Urine (UA) Negative (Negative); Leukocyte Esterase,Urine Negative (Negative); Mucus,Urine Few /lpf (Occasional); Nitrite,Urine Negative (Negative); Specific Gravity,Urine 1.009 (1.002-1.035); Squamous Epithelial Cell,Urine <1 /hpf (0-5)
[2017-11-10] MEDS: Ibuprofen 600 MG Tablet PO PRN (15:29)
[2017-11-11] MEDS: Budesonide-Formoterol 160/4.5 MCG 6 GM Inhaler INH SCH ×3 (01:43→21:17)
[2017-11-11] MEDS: Senna/Docusate Sodium 8.6/50 MG Tablet PO SCH ×3 (01:43→21:17)
[2017-11-11] MEDS: Sulfamethoxazole/Trimethoprim 400/80 MG Tablet PO SCH ×2 (01:43→08:17)
[2017-11-11] MEDS: Ibuprofen 600 MG Tablet PO PRN ×2 (08:28→18:42)
--- NOTE | 2017-11-11 16:04 | P.PNPSY ---
Subjective Remarks: Patient seen in her room with RN, chart review, patient complaint medications. Patient resting calmly in bed she is alert oriented calm cooperative with me acknowledges her homelessness and alcoholism. No states that she realizes her need to maintain sobriety. It appears she is somewhat ambivalent about considering an [place] for the taker checking given allowance per month. She is willing to consider other options including sober living houses and facilities like that. For now continue treatment Review of Systems All other systems reviewed negative except as stated in HPI Mental Status Examination Appearance: Disheveled, Malodorous Consciousness: Alert Orientation: x4 Motor Activity: Normal gait Speech: Unremarkable Language: Adequate Fund of Knowledge: Adequate Attention and Concentration: Adequate Memory: Unremarkable Mood: Other (Euthymic to mildly dysphoric) Affect: Other (Good range and intensity) Thought Process & Associations: Intact, Linear (Mildly) Thought Content: Appropriate Suicidal Ideation: Yes (Now denies) Suicidal Plan: No Suicidal Intention: No Homicidal Ideation: No Homicidal Plan: No Homicidal Intention: No Insight: Fair Judgment: Impulsive Assessment and Plan - Assessment (1) Schizophrenia Code(s): F20.9 - Schizophrenia, unspecified Status: Acute - Plan Plan: Patient alert oriented calm and cooperative now denies suicidality homicidality voice or visions. She is concerned about her ability to find safe housing or programs that she can either afford or that may not demand her to give up all her income Justification for Continued Inpatient Stay: At this time patient would decompensate a place to a lower level of care Discharge Planning: To be determined
--- NOTE | 2017-11-11 16:46 | P.PN ---
Subjective Interval history: Follow up on patient with COPD, CAD, s/p fall with contusion/hematoma RLE. Patient seen and examined. Patient denies any new medical complaints. States she is feeling well. She reports good pain relief with ibuprofen. She is requesting a cream for her legs to help with dryness. She denies any fever chills. Denies any chest pain or shortness of breath. Physical Exam Vital signs: Vital Signs 11/10/17 17:25 11/10/17 18:00 11/10/17 20:28 Temperature 98.4 F 98.4 F Pulse Rate 95 H 95 H Respiratory Rate 17 17 Blood Pressure 174/83 H 124/83 Pulse Oximetry 97 94 L 11/10/17 20:29 11/11/17 05:19 11/11/17 05:24 Temperature 97.5 F L 97.5 F L Pulse Rate 87 75 75 Respiratory Rate 18 16 16 Blood Pressure 149/63 H 149/63 H Pulse Oximetry 94 L 94 L 11/11/17 06:00 11/11/17 07:43 11/11/17 07:44 Temperature 97.8 F Pulse Rate 75 79 Respiratory Rate 16 18 Blood Pressure 149/63 H Pulse Oximetry 94 L 94 L 11/11/17 08:00 Temperature Pulse Rate Respiratory Rate Blood Pressure Pulse Oximetry 96 Intake & Output 11/10/17 11/11/17 11/11/17 18:59 06:59 18:59 Intake Total 1440 / 1440 1560 / 1560 2640 / 2640 Output Total Balance 1440 / 1440 1559 / 1559 2640 / 2640 Weight 125.5 kg Intake: Oral 1440 / 1440 1560 / 1560 2640 / 2640 Output: Urine Narrative: GENERAL: This is an obese well-developed well-nourished female, no acute distress. Awake and alert. Sitting up on side of bed. SKIN: Warm and dry. No generalized rash. HEAD: Atraumatic. Normocephalic. EYES: Pupils equal and round. No scleral icterus. No injection or drainage. ENT: No nasal bleeding or discharge. Mucous membranes pink and moist. NECK: Trachea midline. CARDIOVASCULAR: Regular rate and rhythm. RESPIRATORY: No accessory muscle use. Clear to auscultation. Breath sounds equal bilaterally. GASTROINTESTINAL: Protuberant abdomen soft , nondistended. MUSCULOSKELETAL: Extremities without clubbing or cyanosis. Trace pitting edema bilateral lower extremities. +Right lower extremity with moderate sized eschar with surrounding erythema and edema, tender to palpation. + Extensive ecchymosis surrounding the right ankle with tenderness to palpation and decreased ROM. + Spine ROM not tested. Able to palpate spinous processes and thoracic and lumbar paraspinous muscles without any subjective complaints of pain. NEUROLOGICAL: Awake and alert. No obvious cranial nerve deficits. Motor grossly within normal limits. No focal neurologic findings appreciated. Normal speech. PSYCHIATRIC: Calm and cooperative. Results - Labs CBC & Chem 7: 11/09/17 08:48 11/09/17 08:48 Assessment and Plan - Plan This is a 51-year-old homeless female with past medical history significant for nonobstructive coronary artery disease status post recent catheterization, COPD with ongoing tobaccoism, anxiety, GERD and schizophrenia who sustained an injury to her back and right lower leg status post recent fall he was admitted to inpatient psychiatry under [place]. Hospitalist services have been consulted to assist with ongoing medical management. Schizophrenia Under [place] act -Management per psychiatric team COPD Ongoing tobaccoism Suspected obesity hypoventilation syndrome Suspected CAITY Hypoxia, O2 sats 87% on RA, improved to 96% on NC CXR 11/07 shows no acute cardiopulmonary disease Repeat CXR shows no acute findings -Scheduled duo nebs and albuterol as needed -Continue on home bronchodilator therapy -Supplemental oxygen to maintain O2 saturations greater than 92% -discussed with RUBIN Godinez patient to be moved up to [facility] -Discussed smoking cessation, patient is adamant that she will continue to smoke, unless she receives pain medication -Recommend patient implement a regular exercise program and dietary modifications Nonobstructive CAD s/p recent cardiac catheterization in October in [place] Patient has complaints of chest pain, suspect either costochondritis or GI etiology, also concern for drug-seeking behavior Previously ruled out ACS this admission Trop neg, EKG w/no sig changes, tracing reviewed by me -continue PPI -Monitor for improvement -Continue aspirin 81 mg daily Status post fall with injury to right lower leg and back all imaging neg for acute fracture RLE abrasion and cellulitis, US negative for underlying fluid collection -continue abx treatment with Keflex and Bactrim, monitor for improvement -PT eval/tx - patient able to ambulate 100 feet with rolling walker -tramadol or ibuprofen prn pain Abdominal pain no associated N/V, improved Patient tolerating diet UA neg Lipase and LFTs WNL -monitor Leukocytosis, resolved white count 13.3 Patient is afebrile, vital signs are stable -monitor as indicated Dyslipidemia ASCVD risk calculator 39% lifetime risk -Discussed initiation of statin therapy with patient was agreeable. LFTs within normal limits. -Begin Lipitor 20 mg daily, recommend patient follow-up with PCP as outpatient and have LFTs and lipid profile rechecked DVT prophylaxis -Patient is ambulatory Discussed Condition With: patient, nursing staff and Dr. Napier
[2017-11-11] MEDS: Lactic Acid (Ammonium Lactate) 12% Lotion 225 GM Bottle TOPICAL SCH (21:16)
[2017-11-12] MEDS: Sulfamethoxazole/Trimethoprim 400/80 MG Tablet PO SCH ×3 (07:11→22:03)
[2017-11-12] MEDS: Senna/Docusate Sodium 8.6/50 MG Tablet PO SCH ×2 (09:30→22:03)
[2017-11-12] MEDS: Lactic Acid (Ammonium Lactate) 12% Lotion 225 GM Bottle TOPICAL SCH ×2 (09:30→22:03)
[2017-11-12] MEDS: Budesonide-Formoterol 160/4.5 MCG 6 GM Inhaler INH SCH ×2 (09:30→22:03)
--- NOTE | 2017-11-12 09:52 | P.PN ---
Subjective Interval history: Follow-up visit for COPD, CAD, RLE hematoma. Spoke with nurse reports patient with complaints of left leg pain. Patient is seen and examined resting in bed comfortably and appears to be in no acute distress. Complaints of right leg pain, swelling and warmth, sates that when she gets antibiotic this will help with symptoms. She denies any fevers, chills, cough, shortness of breath, nausea, vomiting, diarrhea or constipation. Physical Exam Vital signs: Vital Signs 11/11/17 18:27 11/11/17 19:17 11/12/17 06:00 Temperature 36.2 C L 36.5 C Pulse Rate 92 H 92 H 80 Respiratory Rate 16 16 17 Blood Pressure 148/88 H 127/60 Pulse Oximetry 91 L 93 L 11/12/17 09:00 11/12/17 09:03 Temperature Pulse Rate 82 Respiratory Rate 18 Blood Pressure Pulse Oximetry 98 Intake & Output 11/11/17 11/12/17 11/12/17 18:59 06:59 18:59 Intake Total 3240 / 3240 1800 / 1800 Output Total Balance 3240 / 3240 1799 / 1799 Intake: Oral 3240 / 3240 1800 / 1800 Output: Urine Other: # Voids 1 Narrative: GENERAL: This is an obese well-developed well-nourished female, no acute distress. Awake and alert. Sitting up on side of bed. SKIN: Warm and dry. No generalized rash. HEAD: Atraumatic. Normocephalic. EYES: Pupils equal and round. No scleral icterus. No injection or drainage. ENT: No nasal bleeding or discharge. Mucous membranes pink and moist. NECK: Trachea midline. CARDIOVASCULAR: Regular rate and rhythm. RESPIRATORY: No accessory muscle use. Clear to auscultation. Breath sounds equal bilaterally. GASTROINTESTINAL: Protuberant abdomen soft , nondistended. MUSCULOSKELETAL: Extremities without clubbing or cyanosis. Trace pitting edema bilateral lower extremities. +Right lower extremity with moderate sized eschar with surrounding erythema and edema, tender to palpation. + Extensive ecchymosis surrounding the right ankle with tenderness to palpation and decreased ROM. NEUROLOGICAL: Awake and alert. No obvious cranial nerve deficits. Motor grossly within normal limits. No focal neurologic findings appreciated. Normal speech. PSYCHIATRIC: Calm and cooperative. Results - Labs CBC & Chem 7: 11/09/17 08:48 11/09/17 08:48 Assessment and Plan - Plan This is a 51-year-old homeless female with past medical history significant for nonobstructive coronary artery disease status post recent catheterization, COPD with ongoing tobaccoism, anxiety, GERD and schizophrenia who sustained an injury to her back and right lower leg status post recent fall he was admitted to inpatient psychiatry under [place]. Hospitalist services have been consulted to assist with ongoing medical management. Schizophrenia Under [place] act -Management per psychiatric team COPD Ongoing tobaccoism Suspected obesity hypoventilation syndrome Suspected CAITY Hypoxia, O2 sats 87% on RA, improved to 96% on NC CXR 11/07 shows no acute cardiopulmonary disease Repeat CXR shows no acute findings -Scheduled duo nebs and albuterol as needed -Continue on home bronchodilator therapy -Supplemental oxygen to maintain O2 saturations greater than 92% -Encouraged smoking cessation Nonobstructive CAD s/p recent cardiac catheterization in October in [place] Patient has complaints of chest pain, suspect either costochondritis or GI etiology, also concern for drug-seeking behavior Previously ruled out ACS this admission Trop neg, EKG w/no sig changes, tracing reviewed by me -continue PPI -Monitor for improvement -Continue aspirin 81 mg daily Status post fall with injury to right lower leg and back all imaging neg for acute fracture RLE abrasion and cellulitis, US negative for underlying fluid collection -continue abx treatment with Keflex and Bactrim ( both to complete 11/16) + pain relief -PT eval/tx - patient able to ambulate 100 feet with rolling walker -tramadol or ibuprofen prn pain Abdominal pain no associated N/V, improved Patient tolerating diet UA neg Lipase and LFTs WNL -monitor Leukocytosis, resolved white count 13.3-->10.0 Patient is afebrile, vital signs are stable -monitor as indicated Dyslipidemia ASCVD risk calculator 39% lifetime risk -Continue Lipitor 20 mg daily, recommend patient follow-up with PCP as outpatient and have LFTs and lipid profile rechecked DVT prophylaxis -Patient is ambulatory Discussed with nurse and patient
--- NOTE | 2017-11-12 14:23 | P.PNPSY ---
Subjective Remarks: Patient seen in her room with nurse Shai, patient laying flat in bed chart review, patient discussed with nurse, patient acknowledges some anxiety related to her homelessness. She is questioning if we would be able to use this unit as an address for her to be sent a debit card. Need to find a with the policy is. Patient's large abrasion over the lower third of her right anterior tibia and somewhat swollen and there is a large erythematous tense area surrounding the lower half of the anterior lower leg. It appears she is on 2 antibiotics for at this time. But she states is tender feeling quite tense. For now continue to observe, deferred to the medicine service who is monitoring this also Review of Systems All other systems reviewed negative except as stated in HPI Mental Status Examination Appearance: Disheveled, Malodorous Consciousness: Alert Orientation: x4 Motor Activity: Normal gait Speech: Unremarkable Language: Adequate Fund of Knowledge: Adequate Attention and Concentration: Adequate Memory: Unremarkable Mood: Other (Euthymic to mildly dysphoric) Affect: Other (Good range and intensity) Thought Process & Associations: Intact, Linear (Mildly) Thought Content: Appropriate Hallucination Type: Auditory Suicidal Ideation: Yes (Now denies) Suicidal Plan: No Suicidal Intention: No Homicidal Ideation: No Homicidal Plan: No Homicidal Intention: No Insight: Fair Judgment: Impulsive Assessment and Plan - Assessment (1) Schizophrenia Code(s): F20.9 - Schizophrenia, unspecified Status: Acute - Plan Plan: Patient continues to be somewhat depressed led to her homelessness and her and her difficult financial status. He is also concern over the cellulitis in her right lower leg. Justification for Continued Inpatient Stay: At this time patient would decompensate a place to a lower level of care Discharge Planning: To be determined
--- NOTE | 2017-11-13 08:26 | P.PN ---
Subjective Interval history: Follow-up visit for COPD, CAD, RLE hematoma. Patient is seen resting comfortably in bed with legs crossed. When I approach her bed she states "Don't even come over here, I don't want to talk to you". She refuses exam and does not make eye contact with me. Discussed with nurse and rest of staff, patient with change in behavior and mood today. Physical Exam Vital signs: Vital Signs 11/12/17 09:00 11/12/17 09:03 11/12/17 17:54 Temperature Pulse Rate 82 Respiratory Rate 18 Blood Pressure Pulse Oximetry 98 98 11/13/17 05:44 Temperature 36.2 C L Pulse Rate 83 Respiratory Rate 17 Blood Pressure 128/59 L Pulse Oximetry 92 L Intake & Output 11/12/17 11/13/17 11/13/17 18:59 06:59 18:59 Intake Total 1080 / 1080 820 / 820 Balance 1080 / 1080 820 / 820 Intake: Oral 1080 / 1080 720 / 720 Oral Supplement 100 / 100 Narrative: GENERAL: This is an obese well-developed well-nourished female, no acute distress. Awake and alert. Resting in bed, in no acute distress. SKIN: Unable to assess HEAD: Atraumatic. Normocephalic. EYES: Pupils equal and round. No scleral icterus. No injection or drainage. NECK: Trachea midline. . RESPIRATORY: No accessory muscle use. GASTROINTESTINAL: Protuberant abdomen. MUSCULOSKELETAL: Unable to assess. NEUROLOGICAL: Awake and alert. No obvious cranial nerve deficits. Normal speech. PSYCHIATRIC: Uncooperative. Results - Labs CBC & Chem 7: 11/09/17 08:48 11/09/17 08:48 Assessment and Plan - Plan This is a 51-year-old homeless female with past medical history significant for nonobstructive coronary artery disease status post recent catheterization, COPD with ongoing tobaccoism, anxiety, GERD and schizophrenia who sustained an injury to her back and right lower leg status post recent fall he was admitted to inpatient psychiatry under [place]. Hospitalist services have been consulted to assist with ongoing medical management. Schizophrenia Under [place] act -Management per psychiatric team COPD Ongoing tobaccoism Suspected obesity hypoventilation syndrome Suspected CAITY Hypoxia, O2 sats 87% on RA, improved to 96% on NC CXR 11/07 shows no acute cardiopulmonary disease Repeat CXR shows no acute findings -Scheduled duo nebs and albuterol as needed -Continue on home bronchodilator therapy -Supplemental oxygen to maintain O2 saturations greater than 92% Nonobstructive CAD s/p recent cardiac catheterization in October in [place] Patient has complaints of chest pain, suspect either costochondritis or GI etiology, also concern for drug-seeking behavior Previously ruled out ACS this admission Trop neg, EKG w/no sig changes, tracing reviewed by me -continue PPI -Monitor for improvement -Continue aspirin 81 mg daily Status post fall with injury to right lower leg and back all imaging neg for acute fracture RLE abrasion and cellulitis, US negative for underlying fluid collection -continue abx treatment with Keflex and Bactrim ( both to complete 11/16) + pain relief -PT eval/tx - patient able to ambulate 100 feet with rolling walker -tramadol or ibuprofen prn pain - Unable to assess leg today as patient is refusing exam and refusing to speak to me. Abdominal pain no associated N/V, improved Patient tolerating diet UA neg Lipase and LFTs WNL -monitor Leukocytosis, resolved white count 13.3-->10.0 Patient is afebrile, vital signs are stable -monitor as indicated Dyslipidemia ASCVD risk calculator 39% lifetime risk -Continue Lipitor 20 mg daily, recommend patient follow-up with PCP as outpatient and have LFTs and lipid profile rechecked DVT prophylaxis -Patient is ambulatory Discussed with nurse and patient
[2017-11-13] MEDS: Sulfamethoxazole/Trimethoprim 400/80 MG Tablet PO SCH ×2 (09:20→22:13)
[2017-11-13] MEDS: Senna/Docusate Sodium 8.6/50 MG Tablet PO SCH (09:20)
[2017-11-13] MEDS: Ibuprofen 600 MG Tablet PO PRN (09:25)
[2017-11-13] MEDS: Lactic Acid (Ammonium Lactate) 12% Lotion 225 GM Bottle TOPICAL SCH (11:29)
[2017-11-13] MEDS: Budesonide-Formoterol 160/4.5 MCG 6 GM Inhaler INH SCH (11:29)
--- NOTE | 2017-11-13 15:35 | P.PNPSY ---
Subjective Remarks: Patient seen in her room with nurse Shai, patient laying quietly in bed she is calmer more cooperative pleasant with me today with better eye contact. She is awaiting the delivery of her debit card by [employer] tomorrow. She is aware that we will be discharging her on Saturday assisting with transportation to the back to the [facility] where she has more resources available to work she is willing to do that. She denies voices or visions suicidality homicidality at this time it appears her leg wound is slowly getting better also Review of Systems All other systems reviewed negative except as stated in HPI Mental Status Examination Appearance: Appropriate, Malodorous Consciousness: Alert Orientation: x4 Motor Activity: Normal gait Speech: Unremarkable Language: Adequate Fund of Knowledge: Adequate Attention and Concentration: Adequate Memory: Unremarkable Mood: Other (Euthymic to mildly dysphoric) Affect: Other (Good range and intensity) Thought Process & Associations: Intact, Linear (Mildly) Thought Content: Appropriate Hallucination Type: Auditory Suicidal Ideation: Yes (Now denies) Suicidal Plan: No Suicidal Intention: No Homicidal Ideation: No Homicidal Plan: No Homicidal Intention: No Insight: Fair Judgment: Impulsive Assessment and Plan - Assessment (1) Schizophrenia Code(s): F20.9 - Schizophrenia, unspecified Status: Acute - Plan Plan: Patient mood is improving, she is compliant with medications, she denies suicidality homicidality voice or visions. She continues to improve consider discharge on 11/15 Justification for Continued Inpatient Stay: At this time patient may decompensate a place to a lower level of care Discharge Planning: To be determined possible relocate back to the [facility]
[2017-11-14] MEDS: Lactic Acid (Ammonium Lactate) 12% Lotion 225 GM Bottle TOPICAL SCH ×3 (01:06→21:23)
[2017-11-14] MEDS: Senna/Docusate Sodium 8.6/50 MG Tablet PO SCH ×3 (01:07→21:25)
[2017-11-14] MEDS: Budesonide-Formoterol 160/4.5 MCG 6 GM Inhaler INH SCH ×3 (01:07→21:23)
[2017-11-14] MEDS: Ibuprofen 600 MG Tablet PO PRN (06:04)
--- NOTE | 2017-11-14 13:42 | P.PN ---
Subjective Interval history: Follow-up visit for COPD, CAD, right lower extremity cellulitis and hematoma. Spoke with nurse reports patient has been ambulating throughout the [place], had shower today and patient purposely peeled off right lower extremity scab. Noted sanguinous drainage by nurse, bordered gauze dressing applied. Patient was discussed with Dr. Luciano who plans on discharging patient tomorrow. Patient is seen ambulating in the [place] without assistive devices, and examined in her room. She denies any fevers, no fevers reported by nurse, does report sweats on and off, reports pain is alleviated with ibuprofen, Tylenol, and antibiotics. Denies any shortness of breath, cough, nausea, vomiting, or diarrhea. Patient is concerned over her inhalers, is requesting to have inhalers prior to being discharged tomorrow. She plans to follow-up with primary care physician in [place] as well as [facility]. Physical Exam Vital signs: Vital Signs 11/13/17 17:47 11/13/17 18:08 11/13/17 20:00 Temperature 36.6 C Pulse Rate 81 Respiratory Rate 17 20 Blood Pressure 123/60 Pulse Oximetry 98 94 L 94 L 11/14/17 05:52 Temperature 36.8 C Pulse Rate 86 Respiratory Rate 17 Blood Pressure 112/57 L Pulse Oximetry 95 Intake & Output 11/13/17 11/14/17 11/14/17 18:59 06:59 18:59 Intake Total 1920 / 1920 480 / 480 1200 / 1200 Balance 1920 / 1920 480 / 480 1200 / 1200 Intake: Oral 1920 / 1920 480 / 480 1200 / 1200 Other: # Voids 2 # Bowel Movements 0 Narrative: GENERAL: This is an obese well-developed well-nourished female, no acute distress. Awake and alert. Sitting up on side of bed. SKIN: Warm and dry. No generalized rash. HEAD: Atraumatic. Normocephalic. EYES: Pupils equal and round. No scleral icterus. No injection or drainage. ENT: No nasal bleeding or discharge. Mucous membranes pink and moist. NECK: Trachea midline. CARDIOVASCULAR: Regular rate and rhythm. RESPIRATORY: No accessory muscle use. Clear to auscultation. Breath sounds equal bilaterally. GASTROINTESTINAL: Protuberant abdomen soft , nondistended. MUSCULOSKELETAL: Extremities without clubbing or cyanosis. +Right lower extremity with open skin from where eschar was previously located, small amount of dark sanguinous drainage noted on bordered gauze. Edema has improved, erythema improved, no warmth noted. Trace right lower leg and foot edema noted , no warmth or erythema. + ecchymosis surrounding the right ankle. NEUROLOGICAL: Awake and alert. No obvious cranial nerve deficits. Motor grossly within normal limits. No focal neurologic findings appreciated. Normal speech. PSYCHIATRIC: Calm and cooperative. Results - Labs CBC & Chem 7: 11/09/17 08:48 11/09/17 08:48 Assessment and Plan - Plan This is a 51-year-old homeless female with past medical history significant for nonobstructive coronary artery disease status post recent catheterization, COPD with ongoing tobaccoism, anxiety, GERD and schizophrenia who sustained an injury to her back and right lower leg status post recent fall he was admitted to inpatient psychiatry under [place]. Hospitalist services have been consulted to assist with ongoing medical management. Schizophrenia Under [place] act -Management per psychiatric team COPD Ongoing tobaccoism Suspected obesity hypoventilation syndrome Suspected CAITY Hypoxia, O2 sats 87% on RA, improved to 96% on NC CXR 11/07 shows no acute cardiopulmonary disease Repeat CXR shows no acute findings -Scheduled duo nebs and albuterol as needed -Continue on home bronchodilator therapy -Not requiring oxygen -Encouraged smoking cessation -Prescription for inhalers to be provided, with one-time refill prior to leaving. Nonobstructive CAD s/p recent cardiac catheterization in October in [place] Patient has complaints of chest pain, suspect either costochondritis or GI etiology, also concern for drug-seeking behavior Previously ruled out ACS this admission Trop neg, EKG w/no sig changes, tracing reviewed by me -continue PPI -Monitor for improvement -Continue aspirin 81 mg daily Status post fall with injury to right lower leg and back all imaging neg for acute fracture RLE abrasion and cellulitis, US negative for underlying fluid collection -continue abx treatment with Keflex and Bactrim ( both to complete 11/16) + pain relief, swelling around eschar improved, erythema improved, trace edema to right foot. Open wound secondary to purposeful eschar removal by patient, bacitracin ointment twice a day. Discussed with patient instructions as well as signs and symptoms of worsening infection. -P pain has improved, can be discharged and take [id number] Tylenol and ibuprofen for pain Leukocytosis, resolved white count 13.3-->10.0 Patient is afebrile, vital signs are stable Dyslipidemia ASCVD risk calculator 39% lifetime risk -Continue Lipitor 20 mg daily, recommend patient follow-up with PCP as outpatient and have LFTs and lipid profile rechecked DVT prophylaxis -Patient is ambulatory Discussed with nurse, patient, Dr. Luciano Discharge Planning: Patient will be provided with prescriptions prior to discharge, one-time refill prior to leaving hospital. She will follow-up with her physician in [place] and follow-up with [facility].
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
[2017-11-14] MEDS: Sulfamethoxazole/Trimethoprim 400/80 MG Tablet PO SCH ×2 (18:38→21:25)
[2017-11-15] MEDS: Lactic Acid (Ammonium Lactate) 12% Lotion 225 GM Bottle TOPICAL SCH (08:47)
[2017-11-15] MEDS: Senna/Docusate Sodium 8.6/50 MG Tablet PO SCH (08:47)
[2017-11-15] MEDS: Sulfamethoxazole/Trimethoprim 400/80 MG Tablet PO SCH (08:47)
[2017-11-15] MEDS: Budesonide-Formoterol 160/4.5 MCG 6 GM Inhaler INH SCH (08:47)
== END 2017-11-15 10:45 | disposition home or self-care (01) ==
LOC: H260 13:07 → H4EA 11-09 10:14
PROVIDERS: ADMIT Psychiatry & Neurology Psychiatry; ATTEND Psychiatry & Neurology Psychiatry